=== PATIENT | male | born 1980 | race Caucasian/White ===

== ENCOUNTER 2022-03-04 14:28 | Emergency (ER) | payer SELFPAY ==
--- NOTE | 2022-03-04 15:34 | EDPHYS ---
Physician Documentation [facility] Name: Domingo Llanes Age: 41 yrs Sex: Male : 1980 Arrival Date: 03/04/2022 Time: 14:30 Bed 11 Private MD: ED Physician David Justin HPI: 03/04 15:37 This 41 yrs old Male presents to ER via Ambulatory with complaints of Skin Sore(s) - jmm both legs. 15:37 The patient presents with pain, that is acute, swelling. Onset: The symptoms/episode jmm began/occurred gradually, 1 week(s) ago. Modifying factors: The symptoms are alleviated by nothing. the symptoms are aggravated by nothing. This is a 41 year old male with a history of hiv, htn, that presents to the ED with complaints of lower extremity pain after irritating his legs wearing work boots. Denies fever or chills. . Historical: - Allergies: 14:55 No Known Allergies; aa5 - PMHx: 14:54 Bipolar disorder; High Cholesterol; HIV positive; Hypertensive disorder; NIDDM; aa5 - Immunization history:: Flu vaccine is up to date. - Social history:: Smoking status: Patient reports the use of cigarette tobacco products, smokes one pack cigarettes per day. ROS: 15:37 Constitutional: Negative for fever, chills, and weight loss, Cardiovascular: Negative jmm for chest pain, palpitations, and edema, Respiratory: Negative for shortness of breath, cough, wheezing, and pleuritic chest pain. 15:37 Skin: Positive for erythema. 15:37 All other systems are negative. Exam: 15:37 Constitutional: This is a well developed, well nourished patient who is awake, alert, jmm and in no acute distress. Head/Face: atraumatic. Eyes: EOMI, no conjunctival erythema appreciated ENT: Moist Mucus Membranes Neck: Trachea midline, Supple Chest/axilla: Normal chest wall appearance and motion. Cardiovascular: Regular rate and rhythm. No edema appreciated Respiratory: Normal respirations, no respiratory distress appreciated Abdomen/GI: Non distended, soft Back: Normal ROM 15:37 Skin: scabbing with surrounding erythema and induration noted to the left and right medial lower legs. Nonfluctuant. 15:37 Neuro: Orientation: is normal, Mentation: is normal, Memory: is normal. 15:37 Psych: Behavior/mood is pleasant, cooperative. Vital Signs: 15:11 BP 141 / 77; Pulse 95; Resp 18 S; Temp 97.6(O); Pulse Ox 97% on R/A; Weight 117.93 kg aa5 (R); Height 5 ft. 11 in. (180.34 cm) (R); 15:11 Body Mass Index 36.26 (117.93 kg, 180.34 cm) aa5 MDM: 15:29 Patient medically screened. [facility] 15:32 Data reviewed: vital signs, nurses notes. Counseling: I had a detailed discussion with [facility] the patient and/or guardian regarding: the historical points, exam findings, and any diagnostic results supporting the discharge/admit diagnosis, radiology results, the need for outpatient follow up, to return to the emergency department if symptoms worsen or persist or if there are any questions or concerns that arise at home. 03/04 15:32 [place] [facility] [place]: Discharge the patient after I print discharge papers.; [facility] Complete Time: 15:43 Administered Medications: 15:37 Drug: Bactrim (trimethoprim-sulfamethoxazole) (160 mg-800 mg (DS) 1 tablet Route: PO; iw 15:45 Follow up: Response: No adverse reaction iw 15:37 Drug: Doxycycline 100 mg Route: PO; iw 15:45 Follow up: Response: No adverse reaction iw Disposition: 16:07 Co-signature as Attending Physician, David Justin MD I agree with the assessment and kdr plan of care. Disposition Summary: 03/04/22 15:33 Discharge Ordered Location: Home [facility] Condition: Stable [facility] Diagnosis - Cellulitis of the Lower Extremity [facility] Followup: [facility] - With: Private Physician - When: 2 - 3 days - Reason: Recheck today's complaints, Continuance of care, Re-evaluation by your physician Discharge Instructions: - Discharge Summary Sheet [facility] - Cellulitis, Adult [facility] Forms: - Medication Reconciliation Form [facility] - Thank You Letter [facility] - Antibiotic Education [facility] - Prescription Opioid Use [facility] Prescriptions: - Doxycycline Hyclate 100 mg Oral Tablet - take 1 tablet by ORAL route every 12 hours; 20 tablet; Refills: 0, Product [facility] Selection Permitted - Bactrim DS 800-160 mg Oral Tablet - take 1 tablet by ORAL route every 12 hours for 10 days; 20 tablet; Refills: 0, jmm Product Selection Permitted Signatures: David Justin MD MD kdr Mickail, Joel, PA PA jmm Williams, Irene RN RN iw Fransisca Singer RN RN aa5
--- NOTE | 2022-03-04 15:34 | ER ---
Nurse's Notes [facility] Name: Domingo Llanes Age: 41 yrs Sex: Male : 1980 Arrival Date: 03/04/2022 Time: 14:30 Bed 11 Private MD: Diagnosis: Cellulitis of the Lower Extremity Presentation: 03/04 15:11 Chief complaint: Patient states: Wounds to cristo lower legs, pt states "I got them by aa5 having my boots rub on my legs". Coronavirus screen: At this time, the client does not indicate any symptoms associated with coronavirus-19. Ebola Screen: No symptoms or risks identified at this time. Initial Sepsis Screen: Does the patient meet any 2 criteria? No. Patient's initial sepsis screen is negative. Does the patient have a suspected source of infection? No. Patient's initial sepsis screen is negative. Risk Assessment: Do you want to hurt yourself or someone else? Patient reports no desire to harm self or others. Onset of symptoms was 2021. 15:11 Acuity: CAROLYN 3 aa5 15:11 Method Of Arrival: Ambulatory aa5 Historical: - Allergies: 14:55 No Known Allergies; aa5 - PMHx: 14:54 Bipolar disorder; High Cholesterol; HIV positive; Hypertensive disorder; NIDDM; aa5 - Immunization history:: Flu vaccine is up to date. - Social history:: Smoking status: Patient reports the use of cigarette tobacco products, smokes one pack cigarettes per day. Screenin:44 Abuse screen: Denies threats or abuse. Denies injuries from another. Nutritional iw screening: No deficits noted. Tuberculosis screening: No symptoms or risk factors identified. Fall Risk None identified. Assessment: 15:43 General: Appears in no apparent distress. Behavior is calm, cooperative. Pain: Denies iw pain. Neuro: Level of Consciousness is awake, alert, obeys commands, Oriented to person, place, situation. Cardiovascular: Patient's skin is warm and dry. Respiratory: Respiratory effort is even, unlabored, Respiratory pattern is regular. Derm: Skin has blisters on cristo inner calves. Vital Signs: 15:11 BP 141 / 77; Pulse 95; Resp 18 S; Temp 97.6(O); Pulse Ox 97% on R/A; Weight 117.93 kg aa5 (R); Height 5 ft. 11 in. (180.34 cm) (R); 15:11 Body Mass Index 36.26 (117.93 kg, 180.34 cm) aa5 ED Course: 14:30 Patient arrived in ED. am2 14:54 Arm band placed on. aa5 15:12 Triage completed. aa5 15:14 Bay Pan PA is PHCP. [facility] 15:15 David Justin MD is Attending Physician. [facility] 15:28 Sharee Ye, RN is Primary Nurse. iw 15:44 Patient has correct armband on for positive identification. iw 15:44 No provider procedures requiring assistance completed. Patient did not have IV access iw during this emergency room visit. Administered Medications: 15:37 Drug: Bactrim (trimethoprim-sulfamethoxazole) (160 mg-800 mg (DS) 1 tablet Route: PO; iw 15:45 Follow up: Response: No adverse reaction iw 15:37 Drug: Doxycycline 100 mg Route: PO; iw 15:45 Follow up: Response: No adverse reaction iw Outcome: 15:33 Discharge ordered by MD. [facility] 15:44 Discharged to home ambulatory. iw 15:44 Condition: good 15:44 Discharge instructions given to patient, Instructed on discharge instructions, follow up and referral plans. medication usage, Demonstrated understanding of instructions, follow-up care, medications, Prescriptions given X 2. 15:44 Patient left the ED. iw Signatures: Bay Pan PA PA [facility] Sharee Ye, RN RN Fransisca Singer RN RN aa5 Tracy Johnson am2 Corrections: (The following items were deleted from the chart) 15:13 15:11 117.93 kg Reported; Height 5 ft. 11 in. Reported; BMI: 36.2; aa5 aa5 15:14 15:11 BP 141 / 77; Pulse 95bpm; Resp 18bpm; Spontaneous; Pulse Ox 97% RA; 117.93 kg aa5 Reported; Height 5 ft. 11 in. Reported; BMI: 36.2; aa5
[2022-03-04] MEDS ORDERED: SMZ./TMP. 800/160 MG TABLET ONE (15:39)
[2022-03-04] MEDS ORDERED: DOXYCYCLINE 100 MG CAP PO ONE (15:39)
[2022-03-04 16:03] VITALS: BP 141/77; TEMP 97.6; O2SAT 97
== END 2022-03-04 15:44 | disposition home or self-care (01) ==
LOC: ER 14:28
DX: L03.116 Cellulitis of left lower limb (principal); I10 Essential (primary) hypertension; F31.9 Bipolar disorder, unspecified; F17.210 Nicotine dependence, cigarettes, uncomplicated; Z21 Asymptomatic human immunodeficiency virus [HIV] infection status
CPT/HCPCS: 99283

== ENCOUNTER 2022-07-10 08:40 | Emergency (ER) | payer SELFPAY ==
--- NOTE | 2022-07-10 11:37 | ER ---
Nurse's Notes [facility] Name: Domingo Llanes Age: 42 yrs Sex: Male : 1980 Arrival Date: 07/10/2022 Time: 08:44 Bed External Waiting Private MD: Diagnosis: Person with feared health complaint in whom no diagnosis is made Presentation: 07/10 09:01 Chief complaint: Patient states: Slight cough/congestion. Wants covid test so he can go ll1 to rehab. Coronavirus screen: Vaccine status: Patient reports receiving the 2nd dose of the covid vaccine. Client denies travel out of the [place] in the last 14 days. congestion, cough unrelated to allergies, Client presents with at least one sign or symptom that may indicate coronavirus-19. Standard/surgical mask placed on the client. Ebola Screen: Patient denies travel to an Ebola-affected area in the 21 days before illness onset. Initial Sepsis Screen: Does the patient meet any 2 criteria? No. Patient's initial sepsis screen is negative. Does the patient have a suspected source of infection? No. Patient's initial sepsis screen is negative. Risk Assessment: Do you want to hurt yourself or someone else? Patient reports no desire to harm self or others. Onset of symptoms was July 10, 2022. 09:01 Method Of Arrival: Ambulatory ll1 09:01 Acuity: CAROLYN 4 ll1 Triage Assessment: 09:03 General: Appears in no apparent distress. Behavior is calm, cooperative, appropriate ll1 for age. Pain: Denies pain. EENT: Reports nasal congestion. Respiratory: Reports cough that is. Historical: - Allergies: 09: No Known Allergies; ll1 - PMHx: 09:01 Bipolar disorder; Hypertensive disorder; HIV positive; High Cholesterol; NIDDM; ll1 - Immunization history:: Client reports receiving the 2nd dose of the Covid vaccine. - Social history:: Smoking status: Reported history of juuling and/or vaping. - Family history:: not pertinent. - Hospitalizations: : No recent hospitalization is reported. Screenin:03 Abuse screen: Denies threats or abuse. Nutritional screening: No deficits noted. ll1 Tuberculosis screening: No symptoms or risk factors identified. Fall Risk Total Francis Fall Scale indicates No Risk (0-24 pts). Assessment: 11:48 Reassessment: No changes from previously documented assessment. Patient and/or family ll1 updated on plan of care and expected duration. Pain level reassessed. Patient is alert, oriented x 3, equal unlabored respirations, skin warm/dry/pink. Vital Signs: 09:01 BP 146 / 97; Pulse 80; Resp 17; Temp 98.0; Pulse Ox 98% on R/A; Pain 0/10; ll1 ED Course: 08:44 Patient arrived in ED. rg4 08:48 Colt Meade MD is Attending Physician. rn 09:01 Arm band placed on Patient placed in an exam room, on a stretcher. ll1 09:03 Triage completed. ll1 09:04 Patient has correct armband on for positive identification. Bed in low position. Call ll1 light in reach. Cardiac monitoring not applicable on this patient. 11:48 No provider procedures requiring assistance completed. Patient did not have IV access ll1 during this emergency room visit. Administered Medications: No medications were administered Medication: 09:04 VIS not applicable for this client. ll1 Outcome: 11:36 Discharge ordered by . rn 11:48 Discharged to home ambulatory. ll1 11:48 Condition: stable 11:48 Discharge instructions given to patient, Instructed on discharge instructions, follow up and referral plans. Demonstrated understanding of instructions, follow-up care. 11:48 Patient left the ED. ll1 Signatures: Colt Meade MD MD rn Garcia, Rubi rg4 Audra Godfrey RN RN 1
--- NOTE | 2022-07-10 11:37 | EDPHYS ---
Physician Documentation [facility] Name: Domingo Llanes Age: 42 yrs Sex: Male : 1980 Arrival Date: 07/10/2022 Time: 08:44 Bed External Waiting Private MD: ED Physician Colt Meade HPI: 07/10 09:03 This 42 yrs old Male presents to ER via Unassigned with complaints of Needs Covid Test. rn 09:03 Pt reports needs COVID test, is signing into rehab facility today, has mild cough, told rn needs neg COVID test to sign in. Otherwise feels fine. . Onset: The symptoms/episode began/occurred at an unknown time. Severity of symptoms: At their worst the symptoms were mild in the emergency department the symptoms are unchanged. The patient has not experienced similar symptoms in the past. The patient has not recently seen a physician. Historical: - Allergies: 09:01 No Known Allergies; ll1 - PMHx: 09:01 Bipolar disorder; Hypertensive disorder; HIV positive; High Cholesterol; NIDDM; ll1 - Immunization history:: Client reports receiving the 2nd dose of the Covid vaccine. - Social history:: Smoking status: Reported history of juuling and/or vaping. - Family history:: not pertinent. - Hospitalizations: : No recent hospitalization is reported. ROS: 09:03 Constitutional: Negative for fever, chills, and weight loss, Eyes: Negative for injury, rn pain, redness, and discharge, Neck: Negative for injury, pain, and swelling, Cardiovascular: Negative for chest pain, palpitations, and edema, Respiratory: Negative for shortness of breath, wheezing, and pleuritic chest pain, Abdomen/GI: Negative for abdominal pain, nausea, vomiting, diarrhea, and constipation, Back: Negative for injury and pain, MS/Extremity: Negative for injury and deformity, Skin: Negative for injury, rash, and discoloration, Neuro: Negative for headache, weakness, numbness, tingling, and seizure. Exam: 09:03 Constitutional: This is a well developed, well nourished patient who is awake, alert, rn and in no acute distress. Head/Face: Normocephalic, atraumatic. Cardiovascular: Regular rate and rhythm. No pulse deficits. Respiratory: No increased work of breathing, no retractions or nasal flaring. Abdomen/GI: Soft, non-tender Skin: Warm, dry with normal turgor. Normal color with no rashes, no lesions, and no evidence of cellulitis. Neuro: Awake and alert, GCS 15 Vital Signs: 09:01 BP 146 / 97; Pulse 80; Resp 17; Temp 98.0; Pulse Ox 98% on R/A; Pain 0/10; ll1 MDM: 08:48 Patient medically screened. rn 11:36 Differential Diagnosis COVID, viral syndrome. Data reviewed: vital signs, nurses notes, mechanical intern test result(s), and as a result, I will discharge patient. Counseling: I had a detailed discussion with the patient and/or guardian regarding: the historical points, exam findings, and any diagnostic results supporting the discharge/admit diagnosis, lab results, the need for outpatient follow up, to return to the emergency department if symptoms worsen or persist or if there are any questions or concerns that arise at home. Response to treatment: There is no appreciated change of the patient's symptoms at this time, and as a result, I will discharge patient. Special discussion: I discussed with the patient/guardian in detail that at this point there is no indication for admission to the hospital. It is understood, however, that if the symptoms persist or worsen the patient needs to return immediately for re-evaluation. 07/10 09:00 Order name: SARS-COV-2 RT PCR (Document "Date of Onset" if Symptomatic) rn Administered Medications: No medications were administered Disposition Summary: 07/10/22 11:36 Discharge Ordered Location: Home rn Problem: new rn Symptoms: are unchanged rn Condition: Stable rn Diagnosis - Person with feared health complaint in whom no diagnosis is made rn Followup: rn - With: Private Physician - When: As needed - Reason: Recheck today's complaints, Re-evaluation by your physician Forms: - Medication Reconciliation Form rn - Thank You Letter rn - Antibiotic furniture sales associate - Prescription Opioid Use rn Signatures: Dispatcher [employer] Colt Marks MD MD rn Lewis, Lynsay, RN RN ll1
[2022-07-10 12:44] VITALS: BP 146/97; TEMP 98; O2SAT 98
== END 2022-07-10 11:48 | disposition home or self-care (01) ==
LOC: ER 08:40
DX: Z71.1 Person with feared health complaint in whom no diagnosis is made (principal); Z20.822 Contact with and (suspected) exposure to COVID-19
CPT/HCPCS: 99281; U0003